=== PATIENT | male | born 1975 | race Caucasian/White ===

== ENCOUNTER 2016-07-31 14:38 | Emergency (ER) | payer OTHER ==
[2016-07-31 14:47] VITALS: RESP 16
[2016-07-31] MEDS ORDERED: TDAP ADULT 0.5 ML INJ (BOOSTRIX) IM ONE (15:39)
--- NOTE | 2016-07-31 16:03 | EDPHY ---
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 He was using a kitchen knife to open a package, slipped, and cut his wrist. He denies other injuries. He is not certain about his tetanus status. There has been no persistent bleeding. No limitation of wrist movement and no weakness or numbness of his fingers. He is right-hand dominant. REVIEW OF SYSTEMS: No recent fever, cough, the shortness of breath, vomiting, diarrhea, or abdominal pain. Past Medical/Surgical History: Negative. Social History: He smokes 3/4 pack of cigarettes daily. Social drinker. He works as a door repairman. He will be moving to the [facility] at the end of this month. Smoking Status: Heavy smoker Physical Exam: General Appearance: Alert. Vital signs reviewed. A focused physical examination was performed. BP 143/94. Respiratory: Lungs are clear to auscultation; no wheezes, rales, or rhonchi. Cardiovascular: Regular rate and rhythm; no murmur, rub, or gallop. Skin: Warm and dry, no rashes on exposed skin, normal color. Extremities: 2 cm linear laceration on the left medial wrist at the flexor crease. No active bleeding. Neurological: Alert and oriented. Sensation is intact to light touch over the left hand and arm. 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 Psychiatric: Normal affect. Constitutional: Initial Vital Signs Temperature (C) 36.9 C 07/31/16 14:43 Heart Rate 99 07/31/16 14:43 Respiratory Rate 16 07/31/16 14:43 Blood Pressure 143/94 H 07/31/16 14:43 O2 Sat (%) 96 07/31/16 14:43 O2 Delivery Mode Room Air Allergies/Adverse Reactions: No Known Allergies Allergy (Verified 07/31/16 14:47) Home Medications: Medication Instructions Recorded NK [No Known Home Meds] 07/31/16 Medical Decision Making Procedures: Procedure: Laceration repair. Verbal consent was obtained from the patient. The 2 cm laceration on the left wrist was anesthetized in the usual fashion. The wound was irrigated, draped and explored to its base. There were no deep structures involved. No tendon or vascular injury was identified. The wound was repaired with 4-0 prolene. 6 Sutures were placed. The wound repair was single layer. The procedure was performed by myself. ED Course/Re-evaluation: Repair of laceration of left wrist. No tendon, vascular, nerve injury identified. This was an accidental injury. He was noted to have high blood pressure in the ED and is aware of this. He will be establishing care elsewhere when he moves at the end of this month and will have his blood pressure re-checked. - Data Points Medications Given: Discontinued Medications Diphtheria/Tetanus/Acell Pertussis (Boostrix) 0.5 ml IM .ONCE ONE Stop: 07/31/16 15:40 Last Admin: 07/31/16 16:10 Dose: 0.5 ml Departure - Departure Disposition: Home, Routine, Self-Care Clinical Impression: Laceration Condition: Good Instructions: Laceration (ED) Additional Instructions: Keep the stitches clean and dry. do not get them wet for 24 hours. After that they can be gently washed with soap and water and carefully dried. There will be a scar. There are 6 stitches. They should be removed in ten days. I am giving you a referral to workman's compensation in case your employer wants her to be seen by a workman's compensation physician. Referrals: Work Comp Referral [facility] [Outside] - As per Instructions
[2016-07-31 16:29] VITALS: BP 157/93; PULSE 77; TEMP 99; O2SAT 98
== END 2016-07-31 16:29 | disposition home or self-care (01) ==
PROC: 0HQEXZZ Repair Left Lower Arm Skin, External Approach (ICD-10-PCS; principal; 2016-07-31)
DX: S61.512A Laceration without foreign body of left wrist, initial encounter (principal); F17.210 Nicotine dependence, cigarettes, uncomplicated; Z23 Encounter for immunization; W26.0XXA Contact with knife, initial encounter; Y92.89 Other specified places as the place of occurrence of the external cause; Y99.8 Other external cause status; Y93.89 Activity, other specified